=== PATIENT | female | born 1985 | race Caucasian/White ===

== ENCOUNTER 2017-04-12 07:42 | Inpatient (IN) | payer OTHER ==
[2017-04-12] VITALS (10 sets, daily range): BP systolic 106–124; BP diastolic 56–77
[~2017-04-12] VITALS: Ht 160 cm; Wt 70.3 kg
[~2017-04-12 07:42] MED LIST: ALBUTEROL SULF8.5 GM IH; ERRIN0.35 MG PO; FLONASE16 G1; MIRENA52 MG IY; MULTIVITAMIN1 EAC2 PO; Motrin PO; OMEPRAZOLE40 M1 PO; PREDNISONE20 MG PO; PREDNISONE50 MG PO; SINGULAIR; VENTOLIN HFA18 GM IH; ZITHROMAX250 MG PO; [UNRECOGNIZED DRUG - REMARK]
[2017-04-12] MEDS ORDERED: OMEPRAZOLE20 MG PO (08:26)
[2017-04-12] MEDS ORDERED: IRON325 M1 PO (08:27)
[2017-04-12] MEDS ORDERED: PRENATAL TABLE1 EAC3 PO (08:27)
[2017-04-12 09:02] LABS: BASOPHIL COUNT 0.1 K/uL (0-0.1); EOSINOPHIL COUNT 0.1 K/uL (0-0.3); HEMATOCRIT 31.3 % (36.0-46.0); IMMATURE GRANULOCYTE (%) 1.1 % (0.0-0.7); IMMATURE GRANULOCYTE COUNT 0.1 K/uL; INSTRUMENT ABS NEUTROPHIL CT 7.5 K/uL; LYMPHOCYTE COUNT 1.9 K/uL (1.0-2.8); MCH 19.4 PG (29.0-34.0); MCHC 28.8 G/DL (30.0-36.0); MCV 67.6 FL (83-99); MEAN PLAT.VOLUME 9.5 uM^3 (9.5-12.4); MONOCYTE (%) 10.6 % (3-12); MONOCYTE COUNT 1.2 K/uL (0-0.8); NEUTROPHIL (%) 69.4 % (45-76); NEUTROPHIL COUNT 7.5 K/uL (1.8-6.4); PLATELET COUNT 315 K/uL (156-360); RBC DIS.WIDTH-CV 18.6 % (11.8-14.6); RBC DIS.WIDTH-SD 44.4 % (39-53); RED BLOOD COUNT 4.63 M/uL (3.80-5.20); WHITE BLOOD COUNT 10.8 K/uL (4.1-10.2)
[2017-04-12] MEDS ORDERED: MOTRIN800 MG PO (12:45)
[2017-04-13 07:35] VITALS: BP 116/69
[2017-04-13 15:09] VITALS: BP 130/77
== END 2017-04-13 16:10 | disposition home or self-care (01) | DRG 775 ==
LOC: LDRP-OP 07:42 → 2WEST 07:43 → LDRP-OP 10:00 → 2WEST 12:25 → LDRP-OP 08-11 11:41
PROVIDERS: Obstetrics & Gynecology
PROC: 10E0XZZ Delivery of Products of Conception, External Approach (ICD-10-PCS; principal; 2017-04-12)
PROC: 0HQ9XZZ Repair Perineum Skin, External Approach (ICD-10-PCS; principal; 2017-04-12)
PROC: 10907ZC Drainage of Amniotic Fluid, Therapeutic from Products of Conception, Via Natural or Artificial Opening (ICD-10-PCS; principal; 2017-04-12)
PROC: 3E033VJ Introduction of Other Hormone into Peripheral Vein, Percutaneous Approach (ICD-10-PCS; principal; 2017-04-12)
DX: O70.0 First degree perineal laceration during delivery (principal); O99.02 Anemia complicating childbirth; D50.9 Iron deficiency anemia, unspecified; Z3A.39 39 weeks gestation of pregnancy; Z37.0 Single live birth; O99.62 Diseases of the digestive system complicating childbirth; K21.9 Gastro-esophageal reflux disease without esophagitis; O99.52 Diseases of the respiratory system complicating childbirth; J45.909 Unspecified asthma, uncomplicated
CPT/HCPCS: 85025; J7120